=== PATIENT | male | born 1960 | race Caucasian/White ===

== ENCOUNTER 2019-10-30 21:00 | Emergency (ER) | payer OTHER ==
[~2019-10-30] VITALS: Ht 182.9 cm; Wt 90.7 kg
--- NOTE | 2019-10-30 21:07 | NUR ---
SURVEYOR AT BEDSIDE FOR LABS
--- NOTE | 2019-10-30 21:14 | NUR ---
PT AAOX4. AMBULATORY. BIBRA 102 FROM HOME FOR C/O PALPITATION S/P TAKING COCAINE FOR THE FIRST TIME. PT PLACED ON MONITOR AND PULSE OX. VSS. MD AT BEDSIDE FOR EVAL. PT DENIES CP. NO ACUTE DISTRESS NOTED.
[2019-10-30] MEDS ORDERED: IV NS 0.9% 1,000 ML BAG IV ONE (21:30)
[2019-10-30 21:38] LABS: BASOPHILS # (AUTO) 0.7 /CMM (0.0-0.2); BASOPHILS % (AUTO) 4.7 % (0.0-2.0); EOSINOPHILS % (AUTO) 1.5 % (0.0-6.0); HEMATOCRIT 44 % (39-51); HEMOGLOBIN 14.3 g/dL (13.5-17.5); LYMPHOCYTES # (AUTO) 2.9 /CMM (0.8-4.8); LYMPHOCYTES % (AUTO) 20.8 % (20.0-44.0); MEAN CORPUSCULAR HGB CONC 32 g/dl (31.0-36.0); MEAN CORPUSCULAR VOLUME 84 fL (80-96); MONOCYTES # (AUTO) 0.9 /CMM (0.1-1.30); MONOCYTES % (AUTO) 6.4 % (2.0-12.0); NEUTROPHILS # (AUTO) 9.4 /CMM (1.8-8.9); NEUTROPHILS % (AUTO) 66.6 % (43.0-81.0); PLATELET COUNT (AUTO) 217 /CMM (150-450); RED BLOOD CELL COUNT(AUTO) 5.29 MIL/uL (4.5-6.0); WHITE BLOOD COUNT (AUTO) 14.1 K/uL (4.3-11.0)
--- NOTE | 2019-10-30 21:48 | NUR ---
Patient is resting comfortably in bed. Easily aroused. VSS.
[2019-10-30 21:50] LABS: CALCIUM, SERUM 8.8 mg/dL (8.5-10.1); CARBON DIOXIDE 28 mmol/L (21-32); CHLORIDE 105 mmol/L (98-107); CREATININE 0.9 mg/dL (0.6-1.3); GLUCOSE 93 mg/dL (74-106); POTASSIUM 3.4 mmol/L (3.5-5.1); SODIUM SERUM 142 mmol/L (136-145); UREA NITROGEN, BLOOD 12 mg/dL (7-18)
[2019-10-30] MEDS ORDERED: ACETAMINOPHEN ES 500 MG TABLET ONE (21:58)
[2019-10-30] MEDS ORDERED: ACETAMINOPHEN ES 500 MG TABLET PO ONE (22:00)
[2019-10-30 22:02] LABS: B-TYPE NATRIURETIC PEPTIDE 30 PG/ML (0-125)
--- NOTE | 2019-10-30 22:30 | NUR ---
Patient discharged to home in stable condition. Written and verbal after care instructions given. Patient verbalizes understanding of instruction. Pt ambulated with steady gait.
[2019-10-30 22:31] VITALS: BP 119/78
== END 2019-10-30 22:31 | disposition home or self-care (01) ==
LOC: ER 21:01
DX: R00.2 Palpitations (principal)
CPT/HCPCS: 36415; 71045; 80048; 80307; 83880; 84484; 85025; 93005 ×2; 99285; J7030 ×3; G0480

== ENCOUNTER 2022-09-21 12:07 | Emergency (ER) | payer BC, OTHER ==
[~2022-09-21] VITALS: Ht 182.9 cm; Wt 93.0 kg
[2022-09-21 12:27] VITALS: BP 143/92
[2022-09-21] MEDS ORDERED: IBUP-1955 PO (13:09)
[2022-09-21] MEDS ORDERED: DOXY100C2 PO (13:09)
[2022-09-21] MEDS ORDERED: AMOX-430 PO (13:09)
[2022-09-21] MEDS ORDERED: PIPERACILLIN /TAZOBACTAM 3.375 G in IV D5W 50 ML IV ONE (13:30)
[2022-09-21] MEDS ORDERED: IV NS 0.9% 1,000 ML BAG IV ONE (13:30)
[2022-09-21] MEDS ORDERED: VANCOMYCIN 1 GM in IV D5W 250 ML IV ONE (13:30)
== END 2022-09-21 13:16 | disposition left against medical advice (07) ==
LOC: ER 12:11
DX: M65.88 Other synovitis and tenosynovitis, other site (principal); F17.210 Nicotine dependence, cigarettes, uncomplicated; Z79.1 Long term (current) use of non-steroidal anti-inflammatories (NSAID); Z79.2 Long term (current) use of antibiotics
CPT/HCPCS: 99283; 73130; J2543; J7060